=== PATIENT | female | born 1990 | race Caucasian/White ===

== ENCOUNTER 2019-03-27 01:06 | Emergency (ER) | payer BC ==
[2019-03-27 02:36] VITALS: BMI 40.1
--- NOTE | 2019-03-27 03:16 | PDOC ---
History of Present Illness - General Chief Complaint: Pain Stated Complaint: ABD PAIN, DIFFICULTY BREATHING Time Seen by Provider: 03/27/19 02:41 History Source: Patient Exam Limitations: No Limitations - History of Present Illness Initial Comments: 03/27/19 03:04 28 yo female pmh sig for GERD presents to the ED for sudden onset upper abdominal pain. Pain began around 11 pm last night, tried tums and a PPI without relief and decided to come to the ED. Pain is intermittent, waxes and wanes, described as sharp, non related to eating or drinking, non radiating. LMP 2 days ago. Pt denies recent travel, sick contacts, pt currently asymptomatic denies N/V/F/C, severe abdominal pain, new back pain. Of note, pt had NB/NB vomiting 5 days ago with associated diarrhea that resolved. Past History - Past Medical History Allergies/Adverse Reactions: Allergies Allergy/AdvReac Type Severity Reaction Status Date / Time Penicillins Allergy Verified 03/27/19 08:19 Home Medications: Ambulatory Orders Cetirizine HCl [Zyrtec -] 10 mg PO DAILY 03/27/19 Escitalopram Oxalate [Lexapro -] 10 mg PO DAILY 03/27/19 - Suicide/Smoking/Psychosocial Hx Smoking History: Never smoked Have you smoked in the past 12 months: No Information on smoking cessation initiated: No Hx Alcohol Use: Yes (Social) Drug/Substance Use Hx: No Review of Systems - Review of Systems Constitutional: No: Chills, Fever Respiratory: No: Shortness of Breath Cardiac (ROS): No: Chest Pain, Edema ABD/GI: Yes: Nausea, Vomiting, Other (upper quadrant abdominal pain). No: Abdominal Distended, Constipated, Diarrhea : No: Burning, Dysuria, Frequency, Flank Pain, Hematuria Musculoskeletal: No: Back Pain Integumentary: No: Change in Color, Rash Neurological: No: Headache, Numbness *Physical Exam - Vital Signs Last Vital Signs Temp Pulse Resp BP Pulse Ox 97.3 F L 81 16 117/69 97 03/27/19 01:06 03/27/19 01:06 03/27/19 01:06 03/27/19 01:06 03/27/19 01:06 - Physical Exam General Appearance: Yes: Nourished, Appropriately Dressed. No: Apparent Distress HEENT: positive: EOMI, Normal Voice, Hearing Grossly Normal Neck: positive: Supple Respiratory/Chest: positive: Lungs Clear, Normal Breath Sounds. negative: Accessory Muscle Use, Crackles, Rales, Rhonchi, Stridor, Wheezing Cardiovascular: positive: Regular Rhythm, Regular Rate, S1, S2. negative: Edema , JVD, Murmur Vascular Pulses: Dorsalis-Pedis (R): 3+, Doralis-Pedis (L): 3+ Gastrointestinal/Abdominal: positive: Flat, Soft, Tenderness (mild epigastic tenderness). negative: Pulsatile Mass, Protuberent, Distended, Guarding, Rebound Musculoskeletal: negative: CVA Tenderness Extremity: positive: Normal Capillary Refill, Normal Inspection Integumentary: positive: Normal Color, Dry, Warm Neurologic: positive: Fully Oriented, Alert, Normal Mood/Affect, Normal Response ED Treatment Course - LABORATORY CBC & Chemistry Diagram: 03/27/19 04:20 03/27/19 04:20 Medical Decision Making - Medical Decision Making 03/27/19 05:12 28 yo female pmh sig for GERD presents to the ED for sudden onset upper abdominal pain. Pain began around 11 pm last night, tried tums and a PPI without relief and decided to come to the ED. Pain is intermittent, waxes and wanes, described as sharp, non related to eating or drinking, non radiating. LMP 2 days ago. Pt denies recent travel, sick contacts, pt currently asymptomatic denies N/V/F/C, severe abdominal pain, new back pain. Of note, pt had NB/NB vomiting 5 days ago with associated diarrhea that resolved. vitals WNL NAD, AOX3, states pain is much better than earlier today DDX INLT: cholecystitis, pancreatitis, ulcer, gastroeneteritis, GERD Given pepcid, maalox and fluids with some further improvement LFTs elevated, WBC 11.9. Pt states she is willing to wait for RUQ US for r/o gall bladder path Will s/o to day shift for disposition. *DC/Admit/Observation/Transfer Diagnosis at time of Disposition: RUQ pain, Fatty liver - Discharge Dispostion Disposition: HOME Condition at time of disposition: Improved - Referrals Referrals: Ariadna Mejia [Primary Care Provider] - Carlos Nathan DO [Staff Physician] - - Patient Instructions Printed Discharge Instructions: DI for Abdominal Pain-Adult Additional Instructions: You were seen in the emergency room for abdominal pain. Your lab tests show slightly elevated liver enzymes and the ultrasound shows a fatty liver. Gallbladder is normal. I recommend making an appointment with your doctor to reevaluate and to repeat the liver tests. I also recommend making an appointment with a GI doctor. Your primary care doctor may refer you to one or you may see one here, information is provided below. You can take Tylenol if you develop any fevers and you can take antacids if you have GERD. Come back to the emergency room if pain gets worse, you are unable to tolerate food or liquid, you develop fever, you appear jaundiced or if any new concerning symptom develops. Thank you - Post Discharge Activity
[2019-03-27] MEDS ORDERED: FAMOTIDINE 20 MG/50 ML IVPB 20 MG/50 ML MG IVPB ONE ×2 (03:23→04:24)
[2019-03-27] MEDS ORDERED: MAG HYDROX/AL HYDROX/SIMETH -MYLANTA- ORAL SUSPENSION PO ONE (03:23)
[2019-03-27] MEDS ORDERED: SODIUM CHLORIDE 1,000 ML IV STA (04:23)
[2019-03-27] MEDS ORDERED: MAG HYDROX/AL HYDROX/SIMETH 30 ML UNIT-DOSE CUP ONE (04:24)
[2019-03-27 04:30] LABS: BASO % 0.3 % (0-2.0); EOS % 0.8 % (0-4.5); HEMATOCRIT 39.4 % (32.4-45.2); HEMOGLOBIN 13.2 GM/dL (10.7-15.3); LYMPH % 7.6 % (8-40); MCH 28.9 pg (25.7-33.7); MCHC 33.5 g/dl (32.0-36.0); MEAN CELL VOLUME 86.2 fl (80-96); MEAN PLT VOLUME 9.6 fl (7.5-11.1); MONO % 4.4 % (3.8-10.2); NEUT % 86.9 % (42.8-82.8); PLATELET COUNT 264 K/MM3 (134-434); RBC 4.57 M/mm3 (3.60-5.2); RDW 12.8 % (11.6-15.6); WHITE BLOOD COUNT 11.9 K/mm3 (4.0-10.0)
[2019-03-27 04:57] LABS: ALBUMIN 3.9 g/dl (3.4-5.0); BILIRUBIN,TOTAL 0.4 mg/dL (0.2-1); BLOOD UREA NITROGEN 16.8 mg/dL (7-18); CALCIUM 9.6 mg/dL (8.5-10.1); CREATININE 0.9 mg/dL (0.55-1.3); POTASSIUM 4.1 mmol/L (3.5-5.1); TOT PROT 7.7 g/dl (6.4-8.2)
--- NOTE | 2019-03-27 05:35 | PDOC ---
Documentation entered by Rhett Medrano SCRIBE, acting as scribe for Rachel Broussard DO. Rachel Broussard DO: This documentation has been prepared by the Marcela price Elijah, SCRIBE, under my direction and personally reviewed by me in its entirety. I confirm that the documentation accurately reflects all work , treatment, procedures, and medical decision making performed by me. Attending Attestation - Resident Resident Name: Matt Hill - ED Attending Attestation I have performed the following: I have examined & evaluated the patient, The case was reviewed & discussed with the resident, I agree w/resident's findings & plan - HPI HPI: 03/27/19 03:18 The patient is a 28 year old female with a significant past medical history of GERD who presents to the ED with a sudden onset of upper abdominal pain beginning 4 hours ago. The patient describes the pain as intermittent and sharp , and says the pain is non radiating and not influenced by food or drink. The patient took TUMS to try and relieve the symptoms and when that did not work it prompted her visit to the ED. LMP was x2 days ago. Denies fever, chills, nausea, vomiting Allergies: HOLLIE PCP: Dr. Mejia - Physicial Exam PE: 03/27/19 03:23 Agree with Resident's Exam - Medical Decision Making 03/27/19 05:34 28-year-old female with upper abdominal pain Patient has persistent pain despite fluids and antacids Plan for right upper quadrant ultrasound Case will be signed out to [facility] day shift for disposition
--- NOTE | 2019-03-27 07:18 | PDOC ---
*Physical Exam - Vital Signs Last Vital Signs Temp Pulse Resp BP Pulse Ox 100.0 F H 63 16 112/68 98 03/27/19 06:29 03/27/19 06:29 03/27/19 01:06 03/27/19 06:29 03/27/19 06:29 - Physical Exam General Appearance: Yes: Appropriately Dressed, Obese. No: Apparent Distress HEENT: negative: Scleral Icterus (R), Scleral Icterus (L) Respiratory/Chest: positive: Lungs Clear, Normal Breath Sounds Gastrointestinal/Abdominal: positive: Normal Bowel Sounds, Soft, Tenderness ( slight RUQ tenderness), Other (negative mcgraw) Integumentary: positive: Normal Color, Dry, Warm ED Treatment Course - LABORATORY CBC & Chemistry Diagram: 03/27/19 04:20 03/27/19 04:20 - ADDITIONAL ORDERS Additional order review: Laboratory Results 03/27/19 03/27/19 04:30 04:20 Sodium 137 Potassium 4.1 Chloride 103 Carbon Dioxide 28 Anion Gap 5 L BUN 16.8 Creatinine 0.9 Est GFR (CKD-EPI)AfAm 100.14 Est GFR (CKD-EPI)NonAf 86.41 Random Glucose 105 Calcium 9.6 Total Bilirubin 0.4 AST 107 H ALT 110 H Alkaline Phosphatase 95 Total Protein 7.7 Albumin 3.9 Lipase 181 Serum , Qual Negative 03/27/19 04:20 RBC 4.57 MCV 86.2 MCHC 33.5 RDW 12.8 MPV 9.6 Neutrophils % 86.9 H Lymphocytes % 7.6 L Monocytes % 4.4 Eosinophils % 0.8 Basophils % 0.3 - Medications Given in the ED: ED Medications Discontinued Medications Generic Name Dose Route Start Last Admin Trade Name Freq PRN Reason Stop Dose Admin Al Hydroxide/Mg Hydroxide 30 ml 03/27/19 03:23 03/27/19 06:19 Mylanta Suspension - PO 03/27/19 03:24 30 ml ONCE ONE Administration Famotidine/Sodium Chloride 20 mg in 50 mls @ 100 mls/hr 03/27/19 03:23 04:31 Pepcid 20 Mg Premixed Ivpb - IVPB 03/27/19 03:52 100 mls/hr ONCE ONE Administration Sodium Chloride 1,000 mls @ 1,000 mls/hr 03/27/19 04:23 03/27/19 04:31 Normal Saline - IV 03/27/19 05:22 1,000 mls/hr ASDIR STA Administration Medical Decision Making - Medical Decision Making 03/27/19 07:17 Pt signed out 28yo F with PMH of GERD presenting for upper abdominal pain, sharp, intermittent , does not radiate. Given pepcid, maalox, fluids. Labs significant for wbc 11.9 and slightly elevated LFTs. Pending RUQ sono. low grade fever 100.0, will monitor 03/27/19 08:50 rpt temp 98, US shows increased echotexture of liver, mild fatty liver, normal gb, no stones. elevated lft with fatty liver on u/s, could be due to fatty liver. Pt feels fine , no n/v/d. Still has slight abdominal tenderness but states that it has decreased since she has been here. Has pmd f/u, given referral to GI and vitals normal. Safe for dc home. Given dc instructions and return precautions. Pt agrees to plan. *DC/Admit/Observation/Transfer Diagnosis at time of Disposition: RUQ pain, Fatty liver - Discharge Dispostion Disposition: HOME Condition at time of disposition: Improved Decision to Admit order: No - Referrals Referrals: Ariadna Mejia [Primary Care Provider] - Carlos Nathan DO [Staff Physician] - - Patient Instructions Printed Discharge Instructions: DI for Abdominal Pain-Adult Additional Instructions: You were seen in the emergency room for abdominal pain. Your lab tests show slightly elevated liver enzymes and the ultrasound shows a fatty liver. Gallbladder is normal. I recommend making an appointment with your doctor to reevaluate and to repeat the liver tests. I also recommend making an appointment with a GI doctor. Your primary care doctor may refer you to one or you may see one here, information is provided below. You can take Tylenol if you develop any fevers and you can take antacids if you have GERD. Come back to the emergency room if pain gets worse, you are unable to tolerate food or liquid, you develop fever, you appear jaundiced or if any new concerning symptom develops. Thank you - Post Discharge Activity
[2019-03-27 08:32] VITALS: BP 103/62; PULSE 62; TEMP 98.2
== END 2019-03-27 08:47 | disposition home or self-care (01) ==
LOC: JER 01:06
PROC: 3E0337Z Introduction of Electrolytic and Water Balance Substance into Peripheral Vein, Percutaneous Approach (ICD-10-PCS; principal; 2019-03-27)
PROC: 3E033GC Introduction of Other Therapeutic Substance into Peripheral Vein, Percutaneous Approach (ICD-10-PCS; 2019-03-27)
DX: K21.9 Gastro-esophageal reflux disease without esophagitis (principal)
CPT/HCPCS: 36415; 76705-TC; 80053; 83690; 84703; 85025; 99282-25; J7030